=== PATIENT | female | born 1995 | race African-American/Black ===

== ENCOUNTER 2017-09-16 19:44 | Emergency (ER) | payer OTHER ==
--- NOTE | 2017-09-16 20:58 | NUR ---
CALLED X4 FOR TRIAGE; NO ANSWER
--- NOTE | 2017-09-16 21:18 | NUR ---
CALLED AGAIN; NOT IN LOBBY OR EVEN OUTSIDE
== END 2017-09-16 21:20 | disposition left against medical advice (07) ==
LOC: ER 19:48
DX: Z53.21 Procedure and treatment not carried out due to patient leaving prior to being seen by health care provider (principal)